=== PATIENT | male | born 1960 | race Caucasian/White ===

== ENCOUNTER 2019-11-09 13:06 | Emergency (ER) | payer SELFPAY ==
[~2019-11-09] VITALS: Ht 167.6 cm; Wt 73.6 kg
--- NOTE | 2019-11-09 13:21 | NUR ---
Pt refused wheelchair from triage to room.
[2019-11-09] MEDS ORDERED: CYCLOBENZAPRINE 10 MG TABLET ONE (13:46)
[2019-11-09] MEDS ORDERED: HYDROcodone/APAP 5/325 TABLET ONE (13:47)
[2019-11-09] MEDS ORDERED: SODIUM CHLORIDE FLUSH 10ML SYR IVF ONE (14:00)
[2019-11-09] MEDS ORDERED: CYCLOBENZAPRINE 10 MG TABLET PO ONE (14:00)
[2019-11-09] MEDS ORDERED: HYDROcodone/APAP 5/325 TABLET PO ONE (14:00)
--- NOTE | 2019-11-09 14:00 | NUR ---
PT PRESENTS TO ED WITH C/O CHRONIC LOWER BACK PAIN RADIATING DOWN LEFT LEG AND FOOT, WHICH HAS RECENTLY EXACERBATED. PT STATES HE NOW HAS NUMBNESS/TINGLING DOWN LEFT LEG AND LEFT FOOT, ALSO NOTES THAT HE HAS BEEN "DRIBBLING URINE UNCONTROLLABLY". PT RATES PAIN AT LEVEL 10/10 PRIOR TO PAIN MEDICATION. PT IS AMBULATORY GAIT SLOW BUT STEADY SECONDARY TO PAIN. PT SEEN AND EXAMINED BY ISABELA BREWER. PIV ESTABLISHED, LABS DRAWN WITH PIV START AND SENT TO LAB, URINE SAMPLE OBTAINED AND SENT TO LAB. PT MEDICATED PER EMAR, TOLERATED WELL. POST VOID RESIDUAL MEASURED WITH BLADDER SCANNER, 254ML. MD BREWER NOTIFIED. PT IN MRI AT THIS TIME. Addendum: 11/09/19 at 1419 by POLI PT PRESENTS TO ED WITH C/O CHRONIC LOWER BACK PAIN RADIATING DOWN LEFT LEG AND FOOT, WHICH HAS RECENTLY EXACERBATED. PT STATES HE NOW HAS NUMBNESS/TINGLING DOWN LEFT LEG AND LEFT FOOT, ALSO NOTES THAT HE HAS BEEN "DRIBBLING URINE UNCONTROLLABLY". PT RATES PAIN AT LEVEL 10/10 PRIOR TO PAIN MEDICATION. PT IS AMBULATORY GAIT SLOW BUT STEADY SECONDARY TO PAIN. PT SEEN AND EXAMINED BY ISABELA BREWER. PIV ESTABLISHED, LABS DRAWN WITH PIV START AND SENT TO LAB, URINE SAMPLE OBTAINED AND SENT TO LAB. PT MEDICATED PER EMAR, TOLERATED WELL. POST VOID RESIDUAL MEASURED WITH BLADDER SCANNER, 254ML. MD BREWER NOTIFIED.
[2019-11-09 14:05] VITALS: BP 158/88
--- NOTE | 2019-11-09 14:16 | NUR ---
PT IN MRI AT THIS TIME.
[2019-11-09 14:17] LABS: BASOPHILS # (AUTO) 0.02 x10^3/uL (0-0.1); BASOPHILS % (AUTO) 0 % (0-1); EOSINOPHILS # (AUTO) 0.14 x10^3/uL (0-0.4); EOSINOPHILS % (AUTO) 2 % (1-7); LYMPHOCYTES # (AUTO) 1.97 x10^3/uL (1-3.4); LYMPHOCYTES % (AUTO) 28 % (22-44); MD NO; MEAN CORPUSCULAR HEMOGLOBIN 32.4 pg (27.5-34.5); MEAN CORPUSCULAR HGB CONC 33.6 g/dL (33.2-36.2); MEAN CORPUSCULAR VOLUME 96.2 fL (81-97); MEAN PLATELET VOLUME 10.4 fL (7.4-10.4); MICROSCOPIC NOT IND; MONOCYTES # (AUTO) 0.42 x10^3/uL (0.2-0.8); MONOCYTES % (AUTO) 6 % (2-9); NEUTROPHILS # (AUTO) 4.38 x10^3/uL (1.8-6.8); NEUTROPHILS % (AUTO) 63 % (42-75); PLATELET COUNT 179 x10^3/uL (130-400); RED BLOOD COUNT 5.13 x10^6/uL (4.38-5.82); RED CELL DISTRIBUTION WIDTH 13.6 % (9.4-14.8)
[2019-11-09 14:24] LABS: ALBUMIN 4.2 g/dL (3.4-5.0); ANION GAP 7 mmol/L (5-15); CALCIUM 8.8 mg/dL (8.5-10.1); CHLORIDE 107 mmol/L (98-107); CREATININE 1.16 mg/dL (0.7-1.3)
[2019-11-09 14:33] LABS: CULTURE INDICATED? NO
[2019-11-09] MEDS ORDERED: GADOTERATE 7.5 MMOL/15 ML SYR ONE (14:47)
--- NOTE | 2019-11-09 14:56 | NUR ---
REPORT FROM NAS CALLOWAY. PATIENT CURRENTLY IN MRI.
--- NOTE | 2019-11-09 15:02 | NUR ---
REPORT TO NAS SIERRA PT IN MRI AT THIS TIME.
[2019-11-09] MEDS ORDERED: KETOROLAC 30 MG/1 ML IM ONE (15:30)
[2019-11-09] MEDS ORDERED: KETOROLAC 30 MG/1 ML ONE (15:39)
--- NOTE | 2019-11-09 15:55 | NUR ---
PT MEDICATED PER NOV. RIGHTS VERIFIED PRIOR. 3P'S ADDRESSED. ERMD AT BEDSIDE. PT TO BE D/C
[2019-11-09] MEDS ORDERED: KETOROLAC 30 MG/1 ML IVPush ONE (16:00)
--- NOTE | 2019-11-09 16:20 | NUR ---
PT APPEARS TO HAVE LEFT PRIOR TO BE GIVEN D/C PAPERWORK. IV HAD ALREADY BEEN REMOVED. Addendum: 11/09/19 at 1621 by [place] LET PRIOR TO UPDATED VITALS.
== END 2019-11-09 16:23 | disposition home or self-care (01) ==
LOC: ED 13:58
DX: N40.1 Benign prostatic hyperplasia with lower urinary tract symptoms (principal); R33.8 Other retention of urine; G89.29 Other chronic pain; M54.14 Radiculopathy, thoracic region; M54.5 Low back pain; I10 Essential (primary) hypertension
CPT/HCPCS: 36415; 72158; 80048; 81003; 82040; 85025; 99285; A9575